=== PATIENT | female | born 1975 | race Caucasian/White ===

== ENCOUNTER 2016-08-12 09:36 | Emergency (ER) | payer SELFPAY | END 2016-08-12 10:04 | disposition home or self-care (01) | LOC: CFTX 09:36 → CED 09:36 → CFTX 10:04 | DX: L03.113 Cellulitis of right upper limb (principal); S50.861A Insect bite (nonvenomous) of right forearm, initial encounter; F17.210 Nicotine dependence, cigarettes, uncomplicated | CPT/HCPCS: 99283 ==